=== PATIENT | female | born 1995 | race Two or more races ===

== ENCOUNTER 2018-01-30 16:03 | Observation (INO) | payer SELFPAY | END 2018-01-30 18:10 | disposition home or self-care (01) | LOC: 3 SO LND 16:03 | PROVIDERS: ADMIT Obstetrics & Gynecology; ATTEND Obstetrics & Gynecology | DX: O62.9 Abnormality of forces of labor, unspecified (principal); O26.853 Spotting complicating pregnancy, third trimester; Z3A.33 33 weeks gestation of pregnancy | CPT/HCPCS: G0378; G0379 ==

== ENCOUNTER 2018-02-25 23:54 | Observation (INO) | payer SELFPAY ==
[2018-02-26] MEDS ORDERED: IV RINGERS,LACTATED 1000ML 1,000 ML IV SCH ×2 (00:37→02:45)
[2018-02-26] MEDS ORDERED: hydrOXYzine PAMOATE 25 MG CAPSULE PO PRN (00:45)
[2018-02-26] MEDS ORDERED: TERBUTALINE 1 MG/ML VIAL. SQ PRN (00:45)
[2018-02-26 01:00] LABS: BILIRUBIN,URINE NEGATIVE (NEG); CLARITY,URINE CLEAR; COLOR,URINE YELLOW; NITRITE,URINE NEGATIVE (NEG); PROTEIN,URINE NEGATIVE (NEG-TRACE)
[2018-02-26] MEDS ORDERED: TERBUTALINE 1 MG/ML VIAL. ONE (01:00)
[2018-02-26] MEDS ORDERED: FLUCONAZOLE 100 MG TABLET. PO ONE (01:00)
[2018-02-26 01:06] LABS: BARBITURATES NEG (NEG); BENZODIAZEPINES NEG (NEG); CANNABINOIDS NEG (NEG); COCAINE NEG (NEG); METHADONE NEG (NEG); OPIATES NEG (NEG); PHENCYCLIDINE NEG (NEG)
[2018-02-26 01:08] VITALS: BP 111/70
[2018-02-26 01:10] LABS: AMORPHOUS SEDIMENT,UR PRESENT /HPF; BACTERIA,URINE 0 /HPF (0-FEW); RBC,URINE 0 /HPF (0-2); SQUAMOUS EPITHELIAL CELL,UR MOD /LPF
[2018-02-26 01:12] LABS: AMPHETAMINE/METHAMPHETAMINE NEG (NEG)
== END 2018-02-26 04:05 | disposition home or self-care (01) ==
LOC: 3 SO LND 23:54
PROVIDERS: ADMIT Specialist; ATTEND Specialist
DX: O62.9 Abnormality of forces of labor, unspecified (principal); O99.89 Other specified diseases and conditions complicating pregnancy, childbirth and the puerperium; Z3A.35 35 weeks gestation of pregnancy; Z79.899 Other long term (current) drug therapy
CPT/HCPCS: 80307; 81001; 96372; G0378; G0379; J3105; Q0177; J7120; G0479

== ENCOUNTER 2021-04-09 15:04 | Emergency (ER) | payer SELFPAY ==
[~2021-04-09] VITALS: Ht 162.6 cm; Wt 65.9 kg
[~2021-04-09 15:04] MED LIST: HYDR-3164 PO; NAPR-514 PO
[2021-04-09 15:50] VITALS: BP 119/78
[2021-04-09] MEDS ORDERED: LIDO:MAALOX 1:1 20 ML SINGLE DOSE. SWSW ONE (16:15)
--- NOTE | 2021-04-09 16:35 | PHYS DOC ---
Past Medical History Past Surgical History: Cholecystectomy General Adult EDM: Chief Complaint: ABDOMINAL PAIN IN HPI: HPI: Patient is a 25 year old female who presents with abdominal pain, fatigue, chills, loss of taste and smell. Patient reports lower abdominal pain, 5/10. Patient describes pain as a burning sensation. G3, P2. Denies fever. Denies pain with urination. Denies all vaginal symptoms. No other medical history. Review of Systems: Review of Systems: ROS At least 10 ROS systems have been reviewed and are negative except as documented in the HPI. General: Negative except as outlined in HPI above. Skin: Negative except as outlined in HPI above. HEENT: Negative except as outlined in HPI above. Neck: Negative except as outlined in HPI above. Respiratory: Negative except as outlined in HPI above.. Cardiovascular: Negative except as outlined in HPI above. Abdomen: Negative except as outlined in HPI above. : Negative except as outlined in HPI above. Back/MSK: Negative except as outlined in HPI above. Neuro: Negative except as outlined in HPI above. Psych: Negative except as outlined in HPI above. Heart Score: C/O Chest Pain: No Risk Factors: Risk Factors: DM, Current or recent (<one month) smoker, HTN, HLP, family history of CAD, obesity. Risk Scores: Score 0 - 3: 2.5% MACE over next 6 weeks - Discharge Home Score 4 - 6: 20.3% MACE over next 6 weeks - Admit for Clinical Observation Score 7 - 10: 72.7% MACE over next 6 weeks - Early Invasive Strategies Current Medications: Current Medications Medications (Trade) Dose Ordered Sig/[facility] Start Time Stop Time Status Last Admin Dose Admin Multi-Ingredient Mouthwash/Gargle (Gi Cocktail) 20 ml 1X ONCE 04/09/21 16:15 04/09/21 16:19 DC Allergies: Allergies: Allergies Coded Allergies Type Severity Reaction Last Updated Verified No Known Drug Allergies 02/26/18 No Physical Exam: PE: Constitutional: Well developed, well nourished, no acute distress, non-toxic appearance. [] HENT: Normocephalic, atraumatic, bilateral external ears normal, oropharynx moist, no oral exudates, nose normal. [] Eyes: PERRLA, EOMI, conjunctiva normal, no discharge. [] Neck: Normal range of motion, no tenderness, supple, no stridor. [] Cardiovascular:Heart rate regular rhythm, no murmur [] Lungs & Thorax: Bilateral breath sounds clear to auscultation [] Abdomen: Bowel sounds normal, soft, lower abdominal tenderness] Skin: Warm, dry, no erythema, no rash. [] Back: No tenderness, no CVA tenderness. [] Extremities: No tenderness, no cyanosis, no clubbing, ROM intact, no edema. [] Neurologic: Alert and oriented X 3, normal motor function, normal sensory function, no focal deficits noted. [] Psychologic: Affect normal, judgement normal, mood normal. [] Current Patient Data: Labs: Laboratory Tests Test 04/09/21 15:31 POC Urine HCG, Qualitative Hcg positive (Negative) Vital Signs: Vital Signs Date Time Temp Pulse Resp B/P (MAP) Pulse Ox O2 Delivery O2 Flow Rate FiO2 04/09/21 15:50 98.5 83 18 119/78 (92) 99 Room Air 98.5 EKG: EKG: [] Radiology/Procedures: Radiology/Procedures: []Study: US OB <14 WKS +TV DATE: 04/09/2021 4:50 PM INDICATION: Abdominal pain. COMPARISON: None. TECHNIQUE: Transabdominal ultrasonography of the pelvis was performed. Color Doppler and duplex were utilized as appropriate. FINDINGS: Normally marginated intrauterine gestational sac containing a yolk sac and pole. [place]-rump length of 0.24 cm corresponding to an estimated gestational age of 5 weeks 6 days. heart rate of 144 BPM. No subchorionic hemorrhage is identified. Unremarkable uterine parenchyma. Doppler flow is maintained to both ovaries. No complex cyst or mass at the adnexa. Trace free fluid adjacent to the left ovary. IMPRESSION: 1. Intrauterine gestational sac containing a live pole with an estimated gestational age of 5 weeks 6 days corresponding to a delivery date of 12/04/2021. No subchorionic hemorrhage or other complication is identified. 2. Unremarkable ovaries. Electronically signed by: REMA CHOI MD (04/09/2021 5:37 PM) [facility] Course & Med Decision Making: Course & Med Decision Making Pertinent Labs and Imaging studies reviewed. (See chart for details) [] 25-year-old female presents with abdominal pain in . Patient is G3, P2. UA positive for . Patient given GI cocktail to help with GERD symptoms. Ultrasound shows Intrauterine gestational sac containing a live pole with an estimated gestational age of 5 weeks 6 days. All labs unremarkable. UA is negative for infection. Patient reports that burning epigastric pain has improved after medication was administered. Advised patient she needs to follow-up with her [employer]EL ENGINE ASSEMBLER in the next couple of days. Tylenol for pain. Discussed return precautions with patient. Patient is hemodynamically stable upon disposition. Dragon Disclaimer: Dragon Disclaimer: This electronic medical record was generated, in whole or in part, using a voice recognition dictation system. Departure Departure Impression: Primary Impression: GERD (gastroesophageal reflux disease) Qualified Codes: K21.9 - Gastro-esophageal reflux disease without esophagitis Disposition: HOME / SELF CARE / HOMELESS Condition: STABLE Referrals: NO PCP (PCP) Patient Instructions: Abdominal Pain During , [id number] Additional Instructions: You were seen in the emergency room for epigastric burning pain. Your pain was treated with a GI cocktail which improved your symptoms. Ultrasound was unremarkable. All of your labs were also unremarkable. Please call your DIESEL ENGINE ASSEMBLER make an appointment for the next couple of days for further management. Return to the emergency room if you have worsening symptoms or concerns. EMERGENCY DEPARTMENT GENERAL DISCHARGE INSTRUCTIONS Thank you for coming to [facility] Emergency Department (ED) today and trusting us with you care. We trust that you had a positive experience in our Emergency Department. If you wish to speak to the department management, you may call the Director at [phone]. YOUR FOLLOW UP INSTRUCTIONS ARE FOLLOWS: 1. Do you have a private Doctor? If you do not have a private doctor, please ask for a resource list of physicians or clinics that may be able to assist you with follow up care. 2. The Emergency Physicain has interpreted your x-rays. The X-Ray specialist will also review them. If there is a change in the findings, you will be notified in 48 hours when at all possible. 3. A lab test or culture has been done, your results will be reviewed and you will be notified if you need a change in treatment. ADDITIONAL INSTRUCTIONS AND INFORMATION: 1. Your care today has been supervised by a physician who is specially trained in emergency care. Many problems require more than one evaluation for a complete diagnosis and treatment. We recommend that you schedule your follow up appointment as recommended to ensure complete treatment of you illness or injury. If you are unable to obtain follow up care and continue to have a problem, or if your condition worsens, we recommend that you return to the ED. 2. We are not able to safely determine your condition over the phone nor are we able to give sound medical advice over the phone. For these safety reasons, if you call for medical advice we will ask you to come to the ED for further evaluation. 3. If you have any questions regarding these discharge instructions please call the ED at [phone]. SAFETY INFORMATION: In the interest of safety, wellness, and injury prevention; we encourage you to wear your sealbelt, if you smoke; quite smoking, and we encourage family to use a protective helmet for bicycling and other sporting events that present an increased risk for head injury. IF YOUR SYMPTOMS WORSEN OR NEW SYMPTOMS DEVELOP, OR YOU HAVE CONCERNS ABOUT YOUR CONDITION; OR IF YOUR CONDITION WORSENS WHILE YOU ARE WAITING FOR YOUR FOLLOW UP APPOINTMENT; EITHER CONTACT YOUR PRIMARY CARE DOCTOR, THE PHYSICIAN WHOSE NAME AND NUMBER YOU WERE GIVEN, OR RETURN TO THE ED IMMEDIATELY. LORENZO FLYNN APRN Apr 09, 2021 16:35
[2021-04-09 16:36] LABS: BASO % 0 % (0-3); EOS # 0.2 x10^3/uL (0.0-0.7); EOS % 2 % (0-3); HEMATOCRIT 38.2 % (36.0-47.0); LYMPH # 3.1 x10^3/uL (1.0-4.8); LYMPH % 30 % (24-48); MEAN CORPUSCULAR HEMOGLOBIN 31 pg (25-35); MEAN CORPUSCULAR HGB CONC 34 g/dL (31-37); MEAN CORPUSCULAR VOLUME 90 fL (79-100); MONO # 0.8 x10^3/uL (0.0-1.1); MONO % 8 % (0-9); NEUT # 6.2 x10^3/uL (1.8-7.7); NEUT % 60 % (31-73); PLATELET COUNT 263 x10^3/uL (140-400); RED BLOOD COUNT 4.28 x10^6/uL (3.50-5.40); RED CELL DISTRIBUTION WIDTH 13.1 % (11.5-14.5); WHITE BLOOD COUNT 10.3 x10^3/uL (4.0-11.0)
[2021-04-09 16:38] LABS: BILIRUBIN,URINE NEGATIVE (NEG); CLARITY,URINE CLEAR; COLOR,URINE YELLOW; NITRITE,URINE NEGATIVE (NEG); PH,URINE 5.5 (<5.0-8.0); PROTEIN,URINE NEGATIVE (NEG-TRACE); UROBILINOGEN,URINE 0.2 mg/dL (0.2 mg/dL)
[2021-04-09 16:47] LABS: BACTERIA,URINE 0 /HPF (0-FEW); RBC,URINE 0 /HPF (0-2); WBC,URINE OCC /HPF (0-4)
[2021-04-09 17:09] LABS: CALCIUM 8.4 mg/dL (8.5-10.1); CREATININE 0.6 mg/dL (0.6-1.0); GFR 120.8; POTASSIUM 3.3 mmol/L (3.5-5.1)
[2021-04-09 17:16] LABS: ALBUMIN 3.2 g/dL (3.4-5.0); ALBUMIN/GLOBULIN RATIO 0.9 (1.0-1.7); TOTAL BILIRUBIN 0.1 mg/dL (0.2-1.0); TOTAL PROTEIN 6.8 g/dL (6.4-8.2)
--- NOTE | 2021-04-09 17:40 | RAD ---
Study: US OB <14 WKS +TV DATE: 04/09/2021 4:50 PM INDICATION: Abdominal pain. COMPARISON: None. TECHNIQUE: Transabdominal ultrasonography of the pelvis was performed. Color Doppler and duplex were utilized as appropriate. FINDINGS: Normally marginated intrauterine gestational sac containing a yolk sac and pole. [place]-rump velma gth of 0.24 cm corresponding to an estimated gestational age of 5 weeks 6 days. heart rate of 1 44 BPM. No subchorionic hemorrhage is identified. Unremarkable uterine parenchyma. Doppler flow is maintained to both ovaries. No complex cyst or mass at the adnexa. Trace free fluid a djacent to the left ovary. IMPRESSION: 1. Intrauterine gestational sac containing a live pole with an estimated gestational age of 5 weeks 6 days corresponding to a delivery date of 12/04/2021. No subchorionic hemorrhage or other compli cation is identified. 2. Unremarkable ovaries. Electronically signed by: REMA CHOI MD (04/09/2021 5:37 PM) [facility]
--- NOTE | 2021-04-10 17:01 | NUR ---
IP: Attempted to contact pt concerning covid results. Phone line is restricted. Unable to reach pt.
== END 2021-04-09 18:49 | disposition home or self-care (01) ==
LOC: ER 15:04
DX: O26.891 Other specified pregnancy related conditions, first trimester (principal); K21.9 Gastro-esophageal reflux disease without esophagitis; Z90.49 Acquired absence of other specified parts of digestive tract
CPT/HCPCS: 36415; 76801; 80053; 81001; 81025; 85025; 99284; U0003; U0005

== ENCOUNTER 2021-05-30 11:41 | Emergency (ER) | payer SELFPAY ==
[~2021-05-30] VITALS: Ht 154.9 cm; Wt 64.5 kg
[2021-05-30 11:41] VITALS: BP 106/75
--- NOTE | 2021-05-30 12:39 | PHYS DOC ---
Past Medical History Additional Past Medical Histor: preeclampsia Past Surgical History: Cholecystectomy Smoking Status: Never Smoker Alcohol Use: None General Adult EDM: Chief Complaint: VAGINAL BLEEDING HPI: HPI: Patient is a 25 year old female who presents with last menstrual period she states was February 2021 but cannot give me exact date. Patient states she has intermittent low mid abdominal pain and intermittent low back pain. She states this morning she had slight spotting. She states that she had a small headache about a week ago. She states that she does not have an CONTINUOUS PROCESS TANNER ROTARY DRUM. She does have a history of preeclampsia and cholecystectomy. She denies any concern for STD, nausea, vomiting, diarrhea, fever, dizziness, focal weakness, pain with urination, vision change, swelling, numbness or tingling. Review of Systems: Review of Systems: Constitutional: Denies fever or chills. [] Eyes: Denies change in visual acuity. [] HENT: Denies nasal congestion or sore throat. [] Respiratory: Denies cough or shortness of breath. [] Cardiovascular: Denies chest pain or edema. [] GI: +Mid lower abdominal pain, denies nausea, vomiting, bloody stools or diarrhea. [] : Denies dysuria. [] Musculoskeletal: +Bilateral low back pain or denies joint pain. [] Integument: Denies rash. [] Neurologic: +Intermittent headache, denies focal weakness or sensory changes. [] Endocrine: Denies polyuria or polydipsia. [] Lymphatic: Denies swollen glands. [] Psychiatric: Denies depression or anxiety. [] Heart Score: C/O Chest Pain: No Allergies: Allergies: Allergies Coded Allergies Type Severity Reaction Last Updated Verified No Known Drug Allergies 02/26/18 No Physical Exam: PE: Constitutional: Well developed, well nourished, no acute distress, non-toxic appearance. [] HENT: Normocephalic, atraumatic, bilateral external ears normal, oropharynx moist, no oral exudates, nose normal. [] Eyes: PERRLA, EOMI, conjunctiva normal, no discharge. [] Neck: Normal range of motion, no tenderness, supple, no stridor. [] Cardiovascular:Heart rate regular rhythm, no murmur [] Lungs & Thorax: Bilateral breath sounds clear to auscultation [] Abdomen: Bowel sounds normal, soft, no tenderness, no masses, no pulsatile masses. [] Skin: Warm, dry, no erythema, no rash. [] Back: No tenderness, no CVA tenderness. [] Extremities: No tenderness, no cyanosis, no clubbing, ROM intact, no edema. [] Neurologic: Alert and oriented X 3, normal motor function, normal sensory function, no focal deficits noted. [] Psychologic: Affect normal, judgement normal, mood normal. [] Normal Physical Exam Current Patient Data: Labs: Laboratory Tests Test 05/30/21 12:03 POC Urine HCG, Qualitative Hcg positive (Negative) Vital Signs: Vital Signs Date Time Temp Pulse Resp B/P (MAP) Pulse Ox O2 Delivery O2 Flow Rate FiO2 05/30/21 11:41 98.1 82 16 106/75 (85) 97 Room Air 98.1 EKG: EKG: [] Radiology/Procedures: Radiology/Procedures: [] Impression: [facility] [address] [place], [place] [id number] IMAGING REPORT Signed PATIENT: ALANNAH ESCALANTECOUNT: [id number] : 1995 LOCATION: ER AGE: 25 SEX: F EXAM STATUS: REG ER ORD. PHYSICIAN: ANDREW HERNANDEZ APRN REASON: SLIGHT SPOTTING PROCEDURE: OB < 14 WKS EXAM: OB ULTRASOUND, > 14 WEEKS HISTORY: Vaginal spotting. COMPARISON: 04/09/2021. TECHNIQUE: Multiple grayscale images, color Doppler, and M-mode images of the uterus are obtained. FINDINGS: There is a single intrauterine gestation in breech presentation. The placenta is grade 1 and low lying in the left lateral location without evidence of placenta previa. The amount of amniotic fluid appears appropriate. The amniotic fluid volume is grossly normal. The cervical length is 2.7 cm. Biometrical data: BPD = 2.47 cm for 14 weeks 2 days. HC = 9.81 cm for 14 weeks 4 days. AC = 7.51 cm for 14 weeks 0 days. FL = 1.29 cm for 13 weeks 6 days. HC/AC ratio = 1.3. Overall, the estimated sonographic gestational age is 14 weeks 0 days for an estimated date of delivery of 11/28/2021. The estimated date of delivery provided by the last menstrual period is 12/04/2021. There is a normal heart rate of 152 bpm. There is body motion. The anatomy is not formally assessed due to early gestational age. The adnexal regions are unremarkable. IMPRESSION: 1. Single intrauterine fetus with normal heart rate and gestational age based on ultrasound measurements of 14 weeks and 0 days. 2. Low-lying placenta. Follow-up can be performed at the time of a anatomy survey at approximately 18-20 weeks gestation. 3. No convincing acute sonographic finding. Electronically signed by: Melissa Capps MD (05/30/2021 1:44 PM) [id number] DICTATED and SIGNED BY: MELISSA CAPPS MD DATE: 05/30/21 [id number] 0 Course & Med Decision Making: Course & Med Decision Making Pertinent Labs and Imaging studies reviewed. (See chart for details) COVID-19 CRITERIA: The patient was evaluated during the global COVID-19 pandemic, and that diagnosis was suspected/considered upon their initial presentation. Their evaluation, treatment and testing was consistent with current guidelines for patients who present with complaints or symptoms that may be related to COVID-19. Alert and oriented x4. Ambulatory steady gait. Speaks in full clear sentences. Afebrile. Vital signs within normal limits. Abdomen is soft but slightly tender to the low mid area of which she states is more of a pressure type pain. Does not currently have any back pain. Denies a headache at this time. She is worried that she possibly had Covid and states felt slightly feverish. No CVA tenderness. Patient has no concerns for STD. Pelvic Exam: Display Decorator present Abdomen: Nontender External Genitalia: Normal Skin Speculum: Normal vaginal mucosa, brown cervical discharge Bimanual: No adnexal masses or tenderness, No CMT Patient will be instructed to call Dr. Guaman for follow-up care as soon as possible. [] Gina Disclaimer: Gina Disclaimer: This electronic medical record was generated, in whole or in part, using a voice recognition dictation system. COVID-19 Patient Risks: Age 65 or older: No Sign of co-morbidity: No Exp to person + for COVID: No Exp to PUI: No Travel from affected area: No Lower respiratory symptoms: No Fever: No Other: Yes (headache) PPE Use: Full PPE with N95 mask or PAPR: Yes Departure Departure Impression: Primary Impression: Vaginal bleeding in Additional Impression: Bacterial vaginosis in Disposition: HOME / SELF CARE / HOMELESS Condition: STABLE Referrals: NO PCP (PCP) ARNOLD GUAMAN MD Patient Instructions: Bacterial Vaginosis, Pelvic Rest, Vaginal Bleeding During , Second Trimester Additional Instructions: Follow-up with CONTINUOUS PROCESS TANNER ROTARY DRUM as soon as possible. No sexual intercourse until follow- up. If you begin having large clots, severe abdominal pain, fever or heavy bleeding return to the emergency room. Take Tylenol for any type of pain. Scripts Metronidazole (METRONIDAZOLE) 500 Mg Tablet 1 TAB PO BID for 7 Days, #14 TAB 0 Refills Prov: ANDREW HERNANDEZ APRN 05/30/21 ANDREW HERNANDEZ APRN May 30, 2021 12:39
[2021-05-30 12:41] LABS: BILIRUBIN,URINE NEGATIVE (NEG); CLARITY,URINE CLEAR; COLOR,URINE YELLOW; NITRITE,URINE NEGATIVE (NEG); PH,URINE 5.5 (<5.0-8.0); PROTEIN,URINE NEGATIVE (NEG-TRACE); UROBILINOGEN,URINE 0.2 mg/dL (0.2 mg/dL)
[2021-05-30 12:48] LABS: BACTERIA,URINE 0 /HPF (0-FEW); RBC,URINE OCC /HPF (0-2); WBC,URINE 0 /HPF (0-4)
[2021-05-30 12:56] LABS: BASO # 0.1 x10^3/uL (0.0-0.2); BASO % 1 % (0-3); EOS # 0.1 x10^3/uL (0.0-0.7); EOS % 2 % (0-3); HEMATOCRIT 36.4 % (36.0-47.0); HEMOGLOBIN 12.4 g/dL (12.0-15.5); LYMPH # 2.8 x10^3/uL (1.0-4.8); LYMPH % 32 % (24-48); MEAN CORPUSCULAR HEMOGLOBIN 30 pg (25-35); MEAN CORPUSCULAR HGB CONC 34 g/dL (31-37); MEAN CORPUSCULAR VOLUME 88 fL (79-100); MONO # 0.5 x10^3/uL (0.0-1.1); MONO % 6 % (0-9); NEUT # 5.2 x10^3/uL (1.8-7.7); NEUT % 60 % (31-73); PLATELET COUNT 218 x10^3/uL (140-400); RED BLOOD COUNT 4.14 x10^6/uL (3.50-5.40); WHITE BLOOD COUNT 8.6 x10^3/uL (4.0-11.0)
[2021-05-30 13:11] LABS: CALCIUM 8.2 mg/dL (8.5-10.1); CREATININE 0.4 mg/dL (0.6-1.0); GFR 192.9; POTASSIUM 3.8 mmol/L (3.5-5.1)
[2021-05-30 13:17] LABS: ALBUMIN 3.2 g/dL (3.4-5.0); ALBUMIN/GLOBULIN RATIO 0.7 (1.0-1.7); TOTAL BILIRUBIN 0.2 mg/dL (0.2-1.0); TOTAL PROTEIN 7.6 g/dL (6.4-8.2)
--- NOTE | 2021-05-30 13:46 | RAD ---
EXAM: OB ULTRASOUND, > 14 WEEKS HISTORY: Vaginal spotting. COMPARISON: 04/09/2021. TECHNIQUE: Multiple grayscale images, color Doppler, and M-mode images of the uterus are obtained. FINDINGS: There is a single intrauterine gestation in breech presentation. The placenta is grade 1 and low lyin g in the left lateral location without evidence of placenta previa. The amount of amniotic fluid appe ars appropriate. The amniotic fluid volume is grossly normal. The cervical length is 2.7 cm. Biometrical data: BPD = 2.47 cm for 14 weeks 2 days. HC = 9.81 cm for 14 weeks 4 days. AC = 7.51 cm for 14 weeks 0 days. FL = 1.29 cm for 13 weeks 6 days. HC/AC ratio = 1.3. Overall, the estimated sonographic gestational age is 14 weeks 0 days for an estimated date of delive ry of 11/28/2021. The estimated date of delivery provided by the last menstrual period is 12/04/2021. Th ere is a normal heart rate of 152 bpm. There is body motion. The anatomy is not for julieth assessed due to early gestational age. The adnexal regions are unremarkable. IMPRESSION: 1. Single intrauterine fetus with normal heart rate and gestational age based on ultrasound measureme nts of 14 weeks and 0 days. 2. Low-lying placenta. Follow-up can be performed at the time of a anatomy survey at [facility] 18-20 weeks gestation. 3. No convincing acute sonographic finding. Electronically signed by: Melissa Urban MD (05/30/2021 1:44 PM) [id number]
[2021-05-30] MEDS ORDERED: METR-34 PO (13:56)
[2021-06-01 06:16] LABS: GC PROBE Negative (Negative)
== END 2021-05-30 14:30 | disposition home or self-care (01) ==
LOC: ER 11:41
DX: O46.92 Antepartum hemorrhage, unspecified, second trimester (principal); N76.0 Acute vaginitis; B96.89 Other specified bacterial agents as the cause of diseases classified elsewhere; Z20.822 Contact with and (suspected) exposure to COVID-19; Z90.49 Acquired absence of other specified parts of digestive tract; Z3A.14 14 weeks gestation of pregnancy
CPT/HCPCS: 76801; 80053; 81001; 81025; 84702; 85025; 87426; 87491; 87591; 99284; Q0111; U0003; U0005